=== PATIENT | male | born 1965 | race Hispanic/Latino ===

== ENCOUNTER 2022-09-07 01:52 | Emergency (ER) | payer OTHER ==
[~2022-09-07] VITALS: Ht 182.9 cm; Wt 132.0 kg
[~2022-09-07 01:52] MED LIST: ASPI-1197 PO; CITA-107 PO; ESOM40CA PO; EZET10TA13 PO; FENO134C21 PO; GABA-531 PO; INSU100V SQ; INSU300I SQ; LIRA0.6P2 SQ; LISI40TA9 PO; LORA2TAB2 PO; METO-391 PO; OXYC20TA41 PO; QUET200T PO; RANO500T3 PO; SIMV-46 PO; SITA1TAB2 PO; ZOLP10TA6 PO
[2022-09-07 02:25] VITALS: BP 135/79
== END 2022-09-07 02:42 | disposition home or self-care (01) ==
LOC: EDH 01:52
DX: F41.9 Anxiety disorder, unspecified (principal); Z76.5 Malingerer [conscious simulation]; I10 Essential (primary) hypertension; E11.9 Type 2 diabetes mellitus without complications; E78.00 Pure hypercholesterolemia, unspecified; F41.0 Panic disorder [episodic paroxysmal anxiety]; Z79.82 Long term (current) use of aspirin; Z79.84 Long term (current) use of oral hypoglycemic drugs; Z79.899 Other long term (current) drug therapy; Z90.49 Acquired absence of other specified parts of digestive tract; Z98.890 Other specified postprocedural states; Z91.040 Latex allergy status
CPT/HCPCS: 99281